=== PATIENT | male | born 1950 | race Caucasian/White ===

== ENCOUNTER 2018-10-23 14:34 | Outpatient (CLI) | payer MEDICARE, MEDICAID ==
[~2018-10-23] VITALS: Ht 175.3 cm; Wt 52.6 kg
[2018-10-23 14:52] VITALS: BP 143/101
[2018-10-23] MEDS ORDERED: FLT11013 IH (14:58)
[2018-10-23] MEDS ORDERED: DULO30CA48 PO (14:58)
[2018-10-23] MEDS ORDERED: IBUP-1779 PO (14:58)
[2018-10-23] MEDS ORDERED: AMLO10TA7 PO (14:58)
[2018-10-23] MEDS ORDERED: ALEN70TA5 PO (14:58)
[2018-10-23] MEDS ORDERED: LISI40TA PO (14:58)
[2018-10-23] MEDS ORDERED: METO-352 PO (14:58)
[2018-10-23] MEDS ORDERED: GBPN600T PO (14:58)
== END 2018-10-23 16:00 | disposition home or self-care (01) ==
LOC: PREOP 14:34
PROVIDERS: ATTEND Urology
DX: Z01.818 Encounter for other preprocedural examination (principal)
CPT/HCPCS: 87081

== ENCOUNTER 2018-10-25 06:18 | Day surgery (SDC) | payer MEDICARE, MEDICAID ==
[~2018-10-25] VITALS: Ht 175.3 cm; Wt 52.6 kg
[2018-10-25] VITALS (10 sets, daily range): BP systolic 117–170; BP diastolic 74–110
[~2018-10-25 06:18] MED LIST: ALEN70TA5 PO; AMLO10TA7 PO; DULO30CA48 PO; FLT11013 IH; GBPN600T PO; IBUP-1779 PO; LISI40TA PO; METO-352 PO
--- NOTE | 2018-10-25 07:10 | Progress Note-Pre Operative ---
Pre-Operative Progress Note H&P Reviewed The H&P was reviewed, patient examined and no changes noted. Date Seen by Provider: October 25, 2018 Time Seen by Provider: 07:10 Date H&P Reviewed: October 25, 2018 Time H&P Reviewed: 07:10 Pre-Operative Diagnosis: RT URETERAL STONE AND BILATERAL RENAL STONES WINSTON YOUNG MD October 25, 2018 07:10
[2018-10-25] MEDS ORDERED: LACTATED RINGERS 1,000 ML IV PRN (07:17)
--- NOTE | 2018-10-25 07:17 | Diagnostic Imaging Report ---
INDICATION: Right ureteral stone Single view of the abdomen shows some fecal material scattered throughout the colon. The small bowel is nondilated. There is a 16 mm calculus in the right mid abdomen which likely represents a stone in the mid to lower pole of the right kidney. There are several subcentimeter calcifications seen in the upper pole of the right kidney. The left kidney is predominantly obscured by fecal material. No ureteral calculus is evident on this view. IMPRESSION: Right renal stones. Dictated by: Dictated on workstation # [id number]
[2018-10-25] MEDS ORDERED: cefTRIAXone 1,000 MG IV (ROCEPHIN) VIAL ONE (07:24)
[2018-10-25] MEDS ORDERED: WATER (STERILE) FOR INJECTION 10 ML ONE (07:24)
[2018-10-25] MEDS ORDERED: CATHETER FLUSH 10 ML SYR IV PRN (07:30)
[2018-10-25] MEDS ORDERED: cefTRIAXone FOR IV USE 1,000 MG in WATER (STERILE) FOR INJECTION 10 ML IV ONE (07:30)
--- NOTE | 2018-10-25 07:30 | NUR ---
PT REPORTS HE HAS RIGHT UPPER CHEST IMPLANTED PORT. PORT EVIDENT RIGHT UPPER CHEST. STATES PORT HASN'T BEEN USED OR FLUSHED IN 2 OR 3 YEARS. WILL NOT USE PORT TODAY, ADVISED PT TO CONTACT HIS DOCTOR FOR PLAN FOR PORT MAINTENANCE OR REMOVAL.
[2018-10-25] MEDS ORDERED: SEVOFLURANE (ULTANE) 15 ML INHAL SOLN ONE ×2 (08:00→08:58)
[2018-10-25] MEDS ORDERED: MIDAZOLAM 2 MG/2 ML (VERSED) VIAL ONE (08:00)
[2018-10-25] MEDS ORDERED: fentaNYL INJECTION 100 MCG/2 ML AMP ONE (08:00)
[2018-10-25] MEDS ORDERED: proPOfol 200 MG/20 ML (DIPRIVAN) VIAL IV ONE (08:00)
[2018-10-25] MEDS ORDERED: ONDANSETRON 4 MG/2 ML (SDV) Z0FRAN ONE (08:00)
[2018-10-25] MEDS ORDERED: DEXAMETHASONE 10 MG/ML (DECADRON) 1 ML VIAL ONE (08:00)
[2018-10-25] MEDS ORDERED: LIDOCAINE PF 2% 5 ML (XYLOCAINE) VIAL ONE (08:00)
[2018-10-25] MEDS ORDERED: FUROSEMIDE 40 MG/4 ML INJ (LASIX) ONE (09:12)
[2018-10-25] MEDS ORDERED: KETOROLAC 30 MG/ML VIAL ONE (09:12)
--- NOTE | 2018-10-25 09:15 | Progress Note-Post Operative ---
Post-Operative Progess Note Surgeon (s)/Chalk Tester (s) Surgeon WINSTON YOUNG MD Chalk Tester: NONE Pre-Operative Diagnosis RT URETERAL STONE AND BILATERAL RENAL STONES Post-Operative Diagnosis SAME Procedure & Operative Findings Date of Procedure 10/25/18 Procedure Performed/Findings CYSTO, RT URETERAL CATH, AND RT ESWL Anesthesia Type GENERAL Estimated Blood Loss Estimated blood loss (mL): NONE Specimens/Packing Specimens Removed NONE Packing: NONE WINSTON YOUNG MD October 25, 2018 09:15
--- NOTE | 2018-10-25 09:19 | Discharge Inst-Urology ---
Discharge Inst-Urology Discharge Medications New, Converted, or Re-newed RX: RX on Chart Patient Instructions/Follow Up Plan Patient to call [facility] specialty O.P clinic to see me in 2-3 weeks when I am there KUB on way home KUB prior to see me in [facility] Post ESWL instructions Increase oral fluids for 48 hours and then as needed. Diet and Activity as tolerated. If questions or concerns contact your physician Or seek help at emergency department. WINSTON YOUNG MD October 25, 2018 09:19
[2018-10-25] MEDS ORDERED: HYDROmorphone 2 MG/ML VIAL (DILAUDID) IV ONE (09:45)
[2018-10-25] MEDS ORDERED: ONDANSETRON 4 MG/2 ML (SDV) Z0FRAN IVP PRN (09:45)
[2018-10-25] MEDS ORDERED: HYDR-3870 PO (11:15)
[2018-10-25] MEDS ORDERED: TAMS0.4C98 PO (11:15)
[2018-10-25] MEDS ORDERED: PHEN-640 PO (11:15)
[2018-10-25] MEDS ORDERED: SULF1TAB35 PO (11:15)
[2018-10-25] MEDS ORDERED: HYDROcodone/APAP 5 MG/325 MG (LORTAB) TAB PO ONE (11:15)
--- NOTE | 2018-10-25 11:20 | NUR ---
TAKING PO FLUIDS WITHOUT PROBLEM, HAS C/O RIGHT FLANK/LEFT FLANK PAIN, RATES 8. HAS BEEN RESTING QUIETLY WITH EYES CLOSED, AND C/O DIZZINESS ON ARRIVAL FROM [facility]. REPORTS DIZZINESS IS DECREASED NOW. LORTAB 5/325 MG, ONE TAB, GIVEN PO.
--- NOTE | 2018-10-25 12:10 | NUR ---
REPORTS PAIN DECREASED, NOW RATED 3. VOIDING CLEAR, LIGHT PINK URINE WITHOUT PROBLEM. URINE STRAINED, NO STONE PARTICLES OBTAINED. REQUESTING DISMISSAL.
--- NOTE | 2018-10-25 12:33 | Anesthesia-General Post-Op ---
General Patient Condition Mental Status/LOC: Same as Preop Cardiovascular: Satisfactory Nausea/Vomiting: Absent Respiratory: Satisfactory Pain: Controlled Complications: Absent Post Op Complications Complications None Follow Up Care/Instructions Patient Instructions None needed. Anesthesia/Patient Condition Patient Condition Patient is doing well, no complaints, stable vital signs, no apparent adverse anesthesia problems. No complications reported per nursing. KORY ELLIS CRNA October 25, 2018 12:32
--- NOTE | 2018-10-25 12:37 | Diagnostic Imaging Report ---
INDICATION: P-O ESWL The exam performed earlier today at 633 noted a 1.6 CM calcification overlying the right kidney. That finding is again evident and does not appear to have changed significantly. There is also a few other much smaller (3 mm or less) calcific densities in this area. Those findings are essentially no different as well. The overall appearance of the abdomen is otherwise stable. No new abnormality has developed. IMPRESSION: 1.6 CM calcification overlying the right kidney seen previously is again evident and does not appear to have changed significantly. The overall appearance of the abdomen itself is stable as well. Dictated by: Dictated on workstation # [id number]
--- NOTE | 2018-10-25 13:01 | OPERATIVE REPORT ---
DATE OF SERVICE: 10/25/2018 PREOPERATIVE DIAGNOSES: 1. Right midureteral stone. 2. Bilateral renal stones. POSTOPERATIVE DIAGNOSES: 1. Right midureteral stone. 2. Bilateral renal stones. OPERATION PERFORMED: Cystoscopy with right ureteral catheterization and right extracorporeal shock wave lithotripsy. SURGEON: Dio Young MD ANESTHESIA: General. COMPLICATIONS: None. DESCRIPTION OF PROCEDURE: Under satisfactory general anesthesia, the patient in lithotomy position on the ESWL table, the genitalia were prepped and draped in the usual sterile fashion. A 21-Green[place]ic cystoscope was introduced in the bladder. The anterior urethra was normal. The prostate was nonobstructing. The bladder neck was opened. The bladder was entered and was essentially normal except for some trabeculations and sluggish efflux on the right side. Using the fore oblique lens, I passed a ureteral catheter all the way up to confirm the stone, which was not for sure on the KUB that confirmed as the position of the stone, which was quite radiopaque and seen by our machine; however, because of other radiopaque things from previous surgery including cement in his back, I wanted to localize the stone better. I removed the ureteral catheter and emptied the bladder, removed the cystoscope. The patient was put supine. The ureteral stone was localized. Shocks were delivered and 2000 shocks at a KV of 6 were enough to completely fragmented the stone that was not visualized anymore. The patient received 40 mg of Lasix and 30 mg of Toradol IV at the end of the procedure. He tolerated the procedure and anesthesia well and was sent to recovery room in stable condition. Job ID: [id number] DocumentID: [id number] Dictated Date: 10/25/2018 09:21:52 Pharmacist Helper Date: 10/25/2018 13:00:27 Dictated By: DIO YOUNG MD [facility]
== END 2018-10-25 12:25 | disposition home or self-care (01) ==
LOC: SDC 06:18
PROVIDERS: ATTEND Urology
DX: N20.1 Calculus of ureter (principal); N20.0 Calculus of kidney; I10 Essential (primary) hypertension; G62.9 Polyneuropathy, unspecified; J44.9 Chronic obstructive pulmonary disease, unspecified; Z79.899 Other long term (current) drug therapy
CPT/HCPCS: 74018